=== PATIENT | male | born 1945 | race Caucasian/White ===

== ENCOUNTER → 2016-10-09 | Outpatient (CLI) | payer BC ==
[~2016-10-09] VITALS: Ht 195.6 cm; Wt 114.4 kg
[2016-10-09 12:28] VITALS: BP 146/84; PULSE 58; Ht 195.6 cm; Wt 114.4 kg
== END | disposition home or self-care (01) ==
LOC: C.NEUR 11:58
PROVIDERS: ATTEND Internal Medicine Pulmonary Disease
DX: G47.33 Obstructive sleep apnea (adult) (pediatric) (principal); E66.9 Obesity, unspecified; I10 Essential (primary) hypertension; E03.9 Hypothyroidism, unspecified